=== PATIENT | female | born 1995 ===

== ENCOUNTER 2019-03-27 10:21 | Emergency (ER) | payer OTHER ==
[~2019-03-27] VITALS: Ht 172.7 cm; Wt 45.8 kg
[2019-03-27] MEDS ORDERED: ATABEX DHA 200200 MG (10:31)
== END 2019-03-27 16:07 | disposition home or self-care (01) ==
LOC: ER 10:21
DX: O21.0 Mild hyperemesis gravidarum (principal); Z34.01 Encounter for supervision of normal first pregnancy, first trimester

== ENCOUNTER 2019-08-23 18:15 | Emergency (ER) | payer OTHER ==
[~2019-08-23] VITALS: Ht 172.7 cm; Wt 53.1 kg
[~2019-08-23 18:15] MED LIST: ATABEX DHA 200200 MG
[2019-08-23] MEDS ORDERED: ASPIR 8181 MG PO (18:24)
[2019-08-23] MEDS ORDERED: PRENATABS RX T1 EACH PO (18:24)
[2019-08-23] MEDS ORDERED: ZITHROMAX500 MG PO (20:30)
== END 2019-08-23 20:33 | disposition home or self-care (01) ==
LOC: ER 18:15
DX: O98.513 Other viral diseases complicating pregnancy, third trimester (principal); B33.8 Other specified viral diseases